=== PATIENT | female | born 1965 | race Caucasian/White ===

== ENCOUNTER 2017-02-14 20:08 | Emergency (ER) | payer SELFPAY ==
[2017-02-14 21:47] VITALS: BP 130/68
== END 2017-02-14 21:48 | disposition home or self-care (01) ==
LOC: ED 20:08
DX: J44.9 Chronic obstructive pulmonary disease, unspecified (principal); E11.9 Type 2 diabetes mellitus without complications
CPT/HCPCS: J7620